=== PATIENT | female | born 1950 | race Caucasian/White ===

== ENCOUNTER 2017-05-17 06:51 | Inpatient (IN) | payer MEDICARE ==
[2017-05-17 08:24] LABS: Hematocrit 38 % (35-47); Hemoglobin 12.7 g/dl (12.0-16.0); Mean Corpuscular HGB Conc 33 g/dl (31-36); Mean Corpuscular Hemoglobin 30 pg (27-31); Mean Corpuscular Volume 90 fL (80-97); Mean Platelet Volume 10 um3 (7.4-10.4); Red Blood Count 4.22 10^6/ul (4.0-5.4); Red Cell Distribution Width 15 % (10.5-15); White Blood Count 14.3 10^3/ul (3.5-10.8)
[2017-05-17 08:31] LABS: Urine Bacteria Absent (Absent); Urine Bilirubin Negative (Negative); Urine Glucose Negative (Negative); Urine Nitrite Negative (Negative)
[2017-05-17 08:42] LABS: BUN/Creatinine Ratio 22.8 (8-20); C Reactive Protein 8.85 mg/L (< 5.00); Calcium 10.3 mg/dL (8.6-10.3); EGFR African American 78.5 (>60); EGFR Non-African American 61.1 (>60); Globulin 3.5 g/dL (2-4); Potassium 3.6 mmol/L (3.5-5.0); Total Bilirubin 1.6 mg/dL (0.2-1.0); Total Protein 7.5 g/dL (6.4-8.9)
--- NOTE | 2017-05-17 08:54 | RAD ---
HISTORY: Right upper quadrant pain COMPARISONS: None TECHNIQUE: Multiple transverse and longitudinal ultrasound images were obtained of the right upper quadrant of the abdomen using grayscale and color Doppler imaging. FINDINGS: LIVER: The liver is diffusely echogenic and coarse in echotexture, with decreased acoustic transmission. The liver is otherwise normal in shape, size, and contour. There is normal hepatopedal flow of the portal vein on Doppler imaging. BILIARY TREE: There is no intrahepatic or extrahepatic biliary dilatation. The common duct measures 0.7 cm. GALLBLADDER: The gallbladder is distended. Multiple shadowing echogenic foci consistent with gallstones are noted. There is no gallbladder wall thickening, pericholecystic fluid, or sonographic Ibrahim sign. PANCREAS: The head of the pancreas is unremarkable. The tail of the pancreas is not well visualized secondary to overlying bowel gas. RIGHT KIDNEY: The right kidney is normal in shape, size, contour, and echogenicity. There is no hydronephrosis or nephrolithiasis. The right kidney measures 10.9 x 4.9 x 4.1 cm. AORTA AND IVC: The aorta and IVC are unremarkable. FLUID: There are no pleural effusions. There is no free fluid within the hepatorenal recess. OTHER FINDINGS: None. IMPRESSION: 1. CHOLELITHIASIS WITHOUT SONOGRAPHIC FEATURES OF ACUTE CHOLECYSTITIS. 2. THE COMMON DUCT IS AT THE UPPER LIMITS OF NORMAL IN SIZE. THERE IS NO INTRAHEPATIC BILIARY DILATATION.
--- NOTE | 2017-05-17 10:09 | HP ---
H&P (Free Text) History and Physical: Surgery H & P Asked by Dr Gómez to evaluate a pt. with RUQ abdominal pain and a sono showing gallstones. Ms. Ibrahim is a 66 y.o. female who reports that a few hours after a dinner of pot rosie she woke up with RUQ abdominal pain. It radiated across the upper abdomen and she also felt back pain. She denies N/V/D, but may be a little constipated. She did not have a fever but noticed she was sweating. She recalls that she had a similar episode in the summer, but never before had an episode. She denies change in the color of her urine or stool. She came to the ER and after a time, the pain subsided. PMHx: CAD s/p stent in 2012, HTN, borderline DM Meds: protonix, asa, atorvastatin, lisinopril/HCTZ, plavix NKDA SH: neg. tob., occ EtOH, neg. IVDA FH: CAD paternal relatives, mother had a stroke at 66. PE: general: overweight female in NAD Vital Signs 05/17/17 05/17/17 05/17/17 06:52 07:34 08:00 Temperature 98.3 F Pulse Rate 105 94 86 Respiratory 14 11 13 Rate Blood Pressure 175/81 151/68 137/76 (mmHg) O2 Sat by Pulse 99 98 96 Oximetry 05/17/17 08:30 Temperature Pulse Rate Respiratory Rate Blood Pressure 139/77 (mmHg) O2 Sat by Pulse Oximetry HEENT: neg cervical or supraclavicular adenopathy, ?scleral icterus, moist oral mucosa lungs: clear to ausc. heart: regularly irregular abd: good BS, soft, mildly tender in the RUQ without guarding or rebound, neg. CVAT ext: neg. cyanosis, edema; easily palp DPs bilaterally. Laboratory Results - last 24 hr 05/17/17 05/17/17 05/17/17 08:11 08:11 08:11 WBC 14.3 H RBC 4.22 Hgb 12.7 Hct 38 MCV 90 MCH 30 MCHC 33 RDW 15 Plt Count 212 MPV 10 Neut % (Auto) 84.2 H Lymph % (Auto) 9.1 L Caroline % (Auto) 6.0 Eos % (Auto) 0.2 Baso % (Auto) 0.5 Absolute Neuts (auto) 12.0 H Absolute Lymphs (auto) 1.3 Absolute Monos (auto) 0.9 H Absolute Eos (auto) 0 Absolute Basos (auto) 0.1 Absolute Nucleated RBC 0 Nucleated RBC % 0 Sodium 127 L Potassium 3.6 Chloride 94 L Carbon Dioxide 26 Anion Gap 7 BUN 21 Creatinine 0.92 Est GFR ( Amer) 78.5 Est GFR (Non-Af Amer) 61.1 BUN/Creatinine Ratio 22.8 H Glucose 169 H Lactic Acid 0.8 Calcium 10.3 Magnesium 2.0 Total Bilirubin 1.60 H AST 389 H ALT 317 H Alkaline Phosphatase 164 H C-Reactive Protein 8.85 H Total Protein 7.5 Albumin 4.0 Globulin 3.5 Albumin/Globulin Ratio 1.1 Lipase 50 Urine Color Urine Appearance Urine pH Ur Specific [place] Urine Protein Urine Ketones Urine Blood Urine Nitrate Urine Bilirubin Urine Urobilinogen Ur Leukocyte Esterase Urine WBC (Auto) Urine RBC (Auto) Ur Squamous Epith Cells Urine Bacteria Urine Glucose 05/17/17 08:11 WBC RBC Hgb Hct MCV MCH MCHC RDW Plt Count MPV Neut % (Auto) Lymph % (Auto) Caroline % (Auto) Eos % (Auto) Baso % (Auto) Absolute Neuts (auto) Absolute Lymphs (auto) Absolute Monos (auto) Absolute Eos (auto) Absolute Basos (auto) Absolute Nucleated RBC Nucleated RBC % Sodium Potassium Chloride Carbon Dioxide Anion Gap BUN Creatinine Est GFR ( Amer) Est GFR (Non-Af Amer) BUN/Creatinine Ratio Glucose Lactic Acid Calcium Magnesium Total Bilirubin AST ALT Alkaline Phosphatase C-Reactive Protein Total Protein Albumin Globulin Albumin/Globulin Ratio Lipase Urine Color Yellow Urine Appearance Clear Urine pH 7.0 Ur Specific [place] 1.018 Urine Protein Negative Urine Ketones Negative Urine Blood Negative Urine Nitrate Negative Urine Bilirubin Negative Urine Urobilinogen Negative Ur Leukocyte Esterase Trace H Urine WBC (Auto) 2+(11-20/hpf) H Urine RBC (Auto) Absent Ur Squamous Epith Cells Present H Urine Bacteria Absent Urine Glucose Negative A/P: Symptomatic cholelithiasis with leukocytosis, in a pt. with cardiac hx. Will admit for management of pain, for antibiotics, and eventual cholecystectomy ; she will need cardiac clearance, I asked hospitalists to see. José
[2017-05-17] MEDS ORDERED: Morphine INJ* 2 MG/ML 1 ML SYRINGE (TWO MG - NEW SYRINGE VERSION) IV PRN (10:16)
[2017-05-17] MEDS: D5W 1/2 NS KCl 20 Meq 1000 ML* 1,000 ML IV SCH ×2 (12:21→23:59)
[2017-05-17] MEDS: Pantoprazole IV* 40 MG IV SCH (13:08)
[2017-05-17] MEDS: Metoprolol Succinate XL TAB* 50 MG PO SCH (13:58)
[2017-05-17] MEDS: amLODIPine TAB* 5 MG PO SCH (13:58)
[2017-05-17] MEDS: Lisinopril TAB* 10 MG PO SCH (13:58)
[2017-05-17] MEDS: Hydrochlorothiazide TAB* 25 MG PO SCH (13:58)
[2017-05-17] MEDS ORDERED: ZOSYN 3.375 GM x ONE DOSE over 30 miuntes IVPB ×2 (14:00)
[2017-05-17] MEDS: Atorvastatin* 80 MG TAB PO SCH (20:09)
[2017-05-17] MEDS: ZOSYN 3.375 GM Q6H - Intermittant 30 min Infusion IVPB SCH ×2 (20:10)
--- NOTE | 2017-05-17 22:18 | CONS ---
CC: Javier Corona MD; Constanec Schmidt MD * CONSULTATION REPORT: DATE OF CONSULT: 05/17/17 PRIMARY CARE PROVIDER: Javier Corona MD ATTENDING PHYSICIAN: Bety Sadler DO (dictated by Keena Snow NP). PHYSICIAN REQUESTING CONSULTATION: Constance Schmidt MD REASON FOR CONSULT: Medical evaluation of a patient with a history of coronary artery disease, hypertension, hyperlipidemia and borderline diabetes mellitus. HISTORY OF PRESENT ILLNESS: Ms. Ibrahim is a 66-year-old female with past medical history significant for coronary artery disease status post myocardial infarction in 2012, hypertension, hyperlipidemia, and borderline diabetes mellitus who presented to the emergency room with complaints of upper abdominal pain that started at approximately 1:30 this morning. The patient stated that nothing alleviated the pain. She had tried antacids. She reported feeling warm and denied any chills. She denies any cough, shortness of breath, nausea, or vomiting. The patient reported some diaphoresis when she was having the discomfort. She reports having a similar episode in the past that spontaneously resolved. She denies any urinary symptoms. She denies any lightheadedness, dizziness, or weakness. Due to the patient's continued pain, she decided to present to the emergency room for further evaluation of her symptoms. While in the emergency room, the patient had a gallbladder ultrasound showing cholelithiasis without acute cholecystitis. The patient's common duct was at the upper limits of normal in size. She had labs significant for sodium of 127 , white blood cell count of 14.3, alk phos 164, AST 389, ALT 137, and total bilirubin 1.60. She had an EKG showing a sinus tachycardia, rate of 92 with PVCs and an incomplete left bundle branch block. This EKG was similar to previous EKG in the system from 12/18/12. Dr. Schmidt saw the patient in the emergency room and the patient was admitted for symptomatic cholelithiasis with plans for surgery once medically cleared. The hospitalists were asked to consult on the patient to assist with preoperative risk stratification. PAST MEDICAL HISTORY: 1. Coronary artery disease, status post PR and stent placement. 2. Hyperlipidemia. 3. Hypertension. 4. Borderline diabetes mellitus. PAST SURGICAL HISTORY: Status post cardiac stenting with a bare-metal stent in the left circumflex in 2012. HOME MEDICATIONS: 1. Norvasc 5 mg oral daily. 2. Metoprolol succinate 50 mg oral daily. 3. Lisinopril/hydrochlorothiazide 20/25 mg one tablet oral daily. 4. Atorvastatin 80 mg daily at bedtime. 5. Aspirin 81 mg oral daily. 6. Multivitamin 1 tablet oral daily. 7. Vitamin C 500 mg oral daily. 8. Vitamin D 1000 mg oral daily. 9. Garlic 1 tablet oral daily. ALLERGIES: No known drug allergies. FAMILY HISTORY: The patient's father passed at age 71 from an PR and her brother passed in his late 50s from an PR. The patient denies any family history of diabetes mellitus. The patient had a paternal aunt with a history of leukemia. SOCIAL HISTORY: The patient denies tobacco or recreational drug use. She rarely drinks alcohol. Her daughter Kita Ibrahim will be her surrogate decision maker in the event she is unable to make decisions for herself. REVIEW OF SYSTEMS: I performed a 10-point review of systems. All the pertinent positives and negatives are mentioned in the history of present illness. The remaining review of systems are negative. PHYSICAL EXAM: Vital Signs: Temperature 97.9, heart rate 68, respiratory rate 16, O2 sat 100% on room air, blood pressure 152/61. General Appearance: The patient is alert, pleasant, appears to be in no acute distress. HEENT: Normocephalic, atraumatic. Pupils are equal, round, and reactive to light. Extraocular movements are intact. Cardiovascular: Irregular rate and rhythm. S1 and S2 present. There are no murmurs, rubs or gallops heard. Extremities: There is no lower extremity edema. DP and PT pulses are 2+ and symmetric. Respiratory: There is no accessory muscle use. Lungs are clear to auscultation bilaterally. Abdomen: Soft, nontender, and nondistended. There are bowel sounds present x4. Musculoskeletal: There is no clubbing or cyanosis noted. The patient exhibits good strength in all extremities. Skin: There is no rashes or abnormalities seen. Neurological: Cranial nerves II through XII are grossly intact. The patient moves all extremities. Psychological: The patient is calm and cooperative. DIAGNOSTIC STUDIES/LAB DATA: Sodium 127, potassium 3.6, chloride 94, CO2 26, BUN 21, creatinine 0.92, glucose 169. Alk phos 164, AST 389, ALT 317, and total bilirubin 1.60. White blood cell count 14.3, hemoglobin 12.7, hematocrit 38, and platelet count 212,000. EKG shows sinus tachycardia at a rate of 92 with PVCs and an incomplete left bundle branch block. This EKG is similar to previous EKG from 12/18/12. Gallbladder ultrasound from today. Radiologist Impression: Cholelithiasis without acute cholecystitis. Common duct at upper limits of normal in size. IMPRESSION: Ms. Ibrahim is a 66-year-old with the past medical history significant for coronary artery disease status post myocardial infarction and cardiac stenting, hypertension, hyperlipidemia, and borderline diabetes mellitus who presented to the emergency room with complaints of epigastric and upper abdominal pain and was found to have symptomatic cholelithiasis. The hospitalists were asked to assist with medical management of this patient and preoperative risk stratification on this patient during her hospitalization. ASSESSMENT/PLAN: 1. Symptomatic cholelithiasis. The patient will be started on Zosyn per Surgery. I will defer rest of the management per Surgery. We will recheck the patient's liver function tests in the morning. The patient will be n.p.o. after midnight for surgery hopefully tomorrow. We will hold her aspirin until after surgery. She will be on clear liquids until she is n.p.o. at midnight. According to RCRI the patient has 1 point placing her at a class II risk and a 0.9% risk of a major cardiac event. She has a METS score greater than 4. She had an EKG showing a sinus tachycardia at rate of 92, PVCs, and an incomplete left bundle branch block. It was an EKG similar to previous EKG from 12/18/12. The patient needs no further cardiac workup and may proceed to the OR when okay with Surgery. 2. History of coronary artery disease with myocardial infarction and bare mental stenting. The patient should be resumed on her aspirin when okay with Surgery postoperative. She will be continued on her metoprolol succinate in addition to her atorvastatin. 3. Hypertension. The patient will be continued on her home Norvasc, lisinopril , hydrochlorothiazide, and metoprolol succinate. 4. Hyperlipidemia. The patient will be continued on her home atorvastatin. 5. Hyperglycemia. The patient's glucose was 169 this morning, it does not appear that she has ever had a hemoglobin A1c. We will check a hemoglobin A1c on her. 6. Fluids, electrolytes, and nutrition. Clear liquid diet. N.p.o. after midnight for surgery. 7. Code status. Full code. 8. DVT prophylaxis. I will defer this to General Surgery. The patient should be encouraged to ambulate. 9. Disposition. Observation. TIME SPENT: Time for this consultation was approximately 45 minutes and greater than half of that was spent with the patient discussing the events leading to her arrival today, performing her physical examination, reviewing medications AND past medical history. The case has been reviewed with the attending, Dr. Sadler, who agrees with the plan of care. Reviewed by JANE RODRÍGUEZ 05/20/17 1423 [id number]/[facility] #: [id number] MTDUrbano
[2017-05-18] MEDS: ZOSYN 3.375 GM Q6H - Intermittant 30 min Infusion IVPB SCH ×8 (02:04→19:52)
[2017-05-18 05:53] LABS: Hematocrit 37 % (35-47); Hemoglobin 12.4 g/dl (12.0-16.0); Mean Corpuscular HGB Conc 34 g/dl (31-36); Mean Corpuscular Hemoglobin 31 pg (27-31); Mean Corpuscular Volume 91 fL (80-97); Mean Platelet Volume 10 um3 (7.4-10.4); Red Blood Count 4.05 10^6/ul (4.0-5.4); Red Cell Distribution Width 15 % (10.5-15); White Blood Count 8.3 10^3/ul (3.5-10.8)
[2017-05-18 06:07] LABS: Albumin 3.8 g/dL (3.2-5.2); BUN/Creatinine Ratio 11.7 (8-20); Calcium 9.5 mg/dL (8.6-10.3); EGFR African American 76.6 (>60); EGFR Non-African American 59.6 (>60); Globulin 3.3 g/dL (2-4); Potassium 3.8 mmol/L (3.5-5.0); Total Bilirubin 1.9 mg/dL (0.2-1.0); Total Protein 7.1 g/dL (6.4-8.9)
--- NOTE | 2017-05-18 07:57 | PN ---
Progress Note - Progress Note Date of Service: 05/18/17 Note: Surgery Ms. Ibrahim says she feels much better since getting protonix. She has been having diarrhea, though, and feels dehydrated. Vital Signs 05/17/17 05/17/17 05/17/17 08:00 08:30 09:38 Temperature Pulse Rate 86 Respiratory 13 Rate Blood Pressure 137/76 139/77 155/74 (mmHg) O2 Sat by Pulse 96 Oximetry 05/17/17 05/17/17 05/17/17 09:40 10:00 10:30 Temperature Pulse Rate 100 86 81 Respiratory 14 21 13 Rate Blood Pressure 140/98 137/73 (mmHg) O2 Sat by Pulse 97 96 96 Oximetry 05/17/17 05/17/17 05/17/17 11:00 11:16 11:30 Temperature Pulse Rate 75 90 Respiratory 12 18 14 Rate Blood Pressure 144/72 132/66 (mmHg) O2 Sat by Pulse 97 97 Oximetry 05/17/17 05/17/17 05/17/17 11:53 14:55 15:15 Temperature 97.9 F 98.0 F Pulse Rate 92 83 Respiratory 18 18 18 Rate Blood Pressure 152/61 134/72 (mmHg) O2 Sat by Pulse 100 96 Oximetry 05/17/17 05/17/17 05/17/17 19:09 19:42 23:32 Temperature 98.1 F 98.5 F Pulse Rate 85 81 Respiratory 17 17 14 Rate Blood Pressure 139/66 124/58 (mmHg) O2 Sat by Pulse 98 96 Oximetry 05/18/17 03:41 Temperature 98.3 F Pulse Rate 84 Respiratory 14 Rate Blood Pressure 123/59 (mmHg) O2 Sat by Pulse 97 Oximetry Abd: soft, non-tender Intake & Output 05/17/17 05/18/17 05/18/17 22:59 06:59 14:59 Intake Total 945 100 Output Total 1900 400 Balance -955 -300 Weight 211 lb Intake: IVPB 100 100 Oral 845 0 Output: Urine 1900 400 Other: # Bowel Movements 1 Estimated Stool Amount Small Laboratory Results - last 24 hr 05/17/17 05/17/17 05/17/17 08:11 08:11 08:11 WBC 14.3 H RBC 4.22 Hgb 12.7 Hct 38 MCV 90 MCH 30 MCHC 33 RDW 15 Plt Count 212 MPV 10 Neut % (Auto) 84.2 H Lymph % (Auto) 9.1 L [place] % (Auto) 6.0 Eos % (Auto) 0.2 Baso % (Auto) 0.5 Absolute Neuts (auto) 12.0 H Absolute Lymphs (auto) 1.3 Absolute Monos (auto) 0.9 H Absolute Eos (auto) 0 Absolute Basos (auto) 0.1 Absolute Nucleated RBC 0 Nucleated RBC % 0 Sodium 127 L Potassium 3.6 Chloride 94 L Carbon Dioxide 26 Anion Gap 7 BUN 21 Creatinine 0.92 Est GFR ( Amer) 78.5 Est GFR (Non-Af Amer) 61.1 BUN/Creatinine Ratio 22.8 H Glucose 169 H Lactic Acid 0.8 Calcium 10.3 Magnesium 2.0 Total Bilirubin 1.60 H AST 389 H ALT 317 H Alkaline Phosphatase 164 H Troponin I 0.00 C-Reactive Protein 8.85 H Total Protein 7.5 Albumin 4.0 Globulin 3.5 Albumin/Globulin Ratio 1.1 Lipase 50 Urine Color Urine Appearance Urine pH Ur Specific [place] Urine Protein Urine Ketones Urine Blood Urine Nitrate Urine Bilirubin Urine Urobilinogen Ur Leukocyte Esterase Urine WBC (Auto) Urine RBC (Auto) Ur Squamous Epith Cells Urine Bacteria Urine Glucose 05/17/17 05/17/17 05/17/17 08:11 13:38 15:08 WBC RBC Hgb Hct MCV MCH MCHC RDW Plt Count MPV Neut % (Auto) Lymph % (Auto) [place] % (Auto) Eos % (Auto) Baso % (Auto) Absolute Neuts (auto) Absolute Lymphs (auto) Absolute Monos (auto) Absolute Eos (auto) Absolute Basos (auto) Absolute Nucleated RBC Nucleated RBC % Sodium Potassium Chloride Carbon Dioxide Anion Gap BUN Creatinine Est GFR ( Amer) Est GFR (Non-Af Amer) BUN/Creatinine Ratio Glucose Lactic Acid 2.6 H* 1.6 Calcium Magnesium Total Bilirubin AST ALT Alkaline Phosphatase Troponin I C-Reactive Protein Total Protein Albumin Globulin Albumin/Globulin Ratio Lipase Urine Color Yellow Urine Appearance Clear Urine pH 7.0 Ur Specific [place] 1.018 Urine Protein Negative Urine Ketones Negative Urine Blood Negative Urine Nitrate Negative Urine Bilirubin Negative Urine Urobilinogen Negative Ur Leukocyte Esterase Trace H Urine WBC (Auto) 2+(11-20/hpf) H Urine RBC (Auto) Absent Ur Squamous Epith Cells Present H Urine Bacteria Absent Urine Glucose Negative 05/18/17 05/18/17 05:11 05:11 WBC 8.3 RBC 4.05 Hgb 12.4 Hct 37 MCV 91 MCH 31 MCHC 34 RDW 15 Plt Count 200 MPV 10 Neut % (Auto) 81.2 Lymph % (Auto) 13.6 L [place] % (Auto) 3.9 Eos % (Auto) 0.9 Baso % (Auto) 0.4 Absolute Neuts (auto) 6.7 Absolute Lymphs (auto) 1.1 Absolute Monos (auto) 0.3 Absolute Eos (auto) 0.1 Absolute Basos (auto) 0 Absolute Nucleated RBC 0 Nucleated RBC % 0 Sodium 134 Potassium 3.8 Chloride 102 Carbon Dioxide 24 Anion Gap 8 BUN 11 Creatinine 0.94 Est GFR ( Amer) 76.6 Est GFR (Non-Af Amer) 59.6 BUN/Creatinine Ratio 11.7 Glucose 168 H Lactic Acid Calcium 9.5 Magnesium Total Bilirubin 1.90 H AST 315 H ALT 519 H Alkaline Phosphatase 211 H Troponin I C-Reactive Protein Total Protein 7.1 Albumin 3.8 Globulin 3.3 Albumin/Globulin Ratio 1.2 Lipase Urine Color Urine Appearance Urine pH Ur Specific [place] Urine Protein Urine Ketones Urine Blood Urine Nitrate Urine Bilirubin Urine Urobilinogen Ur Leukocyte Esterase Urine WBC (Auto) Urine RBC (Auto) Ur Squamous Epith Cells Urine Bacteria Urine Glucose A/P: Symptomatic cholelithiasis now with less pain, but mildly elevated TB. Will ask GI to see and defer surgery till after their input. I have ordered MRCP. CLFoster
[2017-05-18] MEDS: amLODIPine TAB* 5 MG PO SCH (08:42)
[2017-05-18] MEDS: Metoprolol Succinate XL TAB* 50 MG PO SCH (08:42)
[2017-05-18] MEDS: Hydrochlorothiazide TAB* 25 MG PO SCH (08:42)
[2017-05-18] MEDS: Lisinopril TAB* 10 MG PO SCH (08:42)
[2017-05-18] MEDS ORDERED: Aspirin Low Dose CHEW TAB* 81 MG PO SCH (09:00)
[2017-05-18] MEDS ORDERED: Lisinopril/HCTZ 20/25(NF) TAB PO SCH (09:00)
[2017-05-18] MEDS: D5W 1/2 NS KCl 20 Meq 1000 ML* 1,000 ML IV SCH ×2 (10:29→19:54)
--- NOTE | 2017-05-18 11:02 | CONS ---
CC: Dr. Schmidt; Dr. Corona * CONSULTATION REPORT: DATE OF CONSULT: 05/18/17. REQUESTING PHYSICIAN: Dr. Schmidt. INDICATION: Cholelithiasis. NARRATIVE: Mr. Ibrahim is a very pleasant 66-year-old female with a history of coronary artery disease, diabetes, hyperlipidemia, hypertension, who is admitted over the weekend with right upper quadrant abdominal pain. She states that it began out of the blue. It was very colicky in nature. She came to the emergency room. She was found to have increased LFTs and a right upper quadrant ultrasound, which showed cholelithiasis, common bile duct 0.7 cm, no ductal dilatation. She was admitted to the hospital for possible surgery. Today, she is feeling much better; however, her LFTs have gone up a little bit more. There is now a question of whether or not she has choledochitises. Again , she is feeling much better at this point. PAST MEDICAL HISTORY: Please see the HPI. PAST SURGICAL HISTORY: Coronary artery stents. MEDICATIONS: Upon admission include: 1. Norvasc. 2. Metoprolol. 3. Garlic. 4. Vitamin D. 5. Vitamin C. 6. Multivitamin. 7. Aspirin. 8. Atorvastatin. 9. Lisinopril/hydrochlorothiazide. ALLERGIES: None. FAMILY HISTORY: Coronary artery disease, leukemia. SOCIAL HISTORY: No tobacco or alcohol use. No IV drug use. REVIEW OF SYSTEMS: Twelve systems were reviewed, other than that mentioned in the HPI were unremarkable. PHYSICAL EXAM: Vital Signs: T-max is 98.5, blood pressure is 128/55, pulse is 81. General: Well-appearing female, in no apparent distress, lying flat in bed. Alert, oriented, pleasant, fluent. HEENT: Mucous membranes are moist without lesions, ulcers, or exudate. Neck: Supple. Trachea is midline. Head is normocephalic and atraumatic. Heart: Regular rate and rhythm. No murmurs, rubs, or gallops. Lungs: Clear to auscultation bilaterally. No wheezes, rales , or rhonchi. Abdomen: Obese. Positive bowel sounds, soft. No epigastric tenderness. Very mild flank tenderness to very deep palpation. Skin: Warm and dry. No rashes or ulcers. No tattoos. Musculoskeletal: No CVA or spinal tenderness to palpation. DIAGNOSTIC STUDIES/LAB DATA: Of note, white count 8.3, hemoglobin 12.4, platelets of 200, bilirubin went from 1.6 to 1.9. AST went from 389 to 315. ALT went from 317 to 519, alk phos went from 164 to 211. CRP is 8.85. BUN 11, creatinine 0.94, glucose of 168. ASSESSMENT AND PLAN: This is a pleasant 66-year-old female with known cholelithiasis with possible choledocholithiasis. We will obtain an MRCP to evaluate her common bile duct. If she has a stone, she will need an ERCP. If no stone, then she can have surgery. We will continue to follow along. [id number]/[facility] #: [id number] MTDD
--- NOTE | 2017-05-18 11:37 | ED ---
Geraldine Hemphill Edward, scribed for Ariel Gómez MD on 05/17/17 at 0712 . Abdominal Pain/Female - HPI Summary HPI Summary: 66 y/o female presents to the ED c/o sudden onset ABD pain starting at 01:30 this morning. The pain was severe when it started, rated an 8/10. It is at a 2/ 10 now in the ED. The pain is located in the epigastric region under the ribcage ; when it was severe the pain radiated to her back. Pt felt like belching but couldn't. The pain was not alleviated with antacids. Associated sx: diaphoresis. Denies N/V/D. Last normal bowel movement yesterday. Pt had a similar episode of ABD pain a couple of months ago that resolved spontaneously. - History of Current Complaint Chief Complaint: EDAbdPain Stated Complaint: ABD PAIN Hx Obtained From: Patient Onset/Duration: Sudden Onset, Lasting Hours, Still Present Timing: Constant Severity Initially: Severe Severity Currently: Mild Pain Intensity: 8 Pain Scale Used: 0-10 Numeric Location: Epigastric Radiates: Yes Radiates to: Back Aggravating Factor(s): Nothing Alleviating Factor(s): Nothing Associated Signs and Symptoms: Positive: Diaphoresis. Negative: Nausea, Vomiting, Diarrhea Allergies/Adverse Reactions: Allergies Allergy/AdvReac Type Severity Reaction Status Date / Time No Known Allergies Allergy Verified 03/05/16 17:03 Home Medications: Home Medications amLODIPine TAB* [Norvasc 5 mg TAB*] 5 mg PO DAILY 05/17/17 [History Confirmed ] PMH/Surg Hx/FS Hx/Imm Hx Previously Healthy: No Endocrine/Hematology History: Reports: Hx Anticoagulant Therapy - plavix Denies: Hx Diabetes, Hx Thyroid Disease Cardiovascular History: Reports: Hx Hypertension - W/MEDS Denies: Hx Pacemaker/ICD Respiratory History: Denies: Hx Chronic Obstructive Pulmonary Disease (COPD) History: Denies: Hx Renal Disease Sensory History: Reports: Hx Contacts or Glasses Opthamlomology History: Reports: Hx Contacts or Glasses Neurological History: Denies: Hx Dementia, Hx Seizures Psychiatric History: Denies: Hx Substance Abuse - Cancer History Hx Chemotherapy: No Hx Radiation Therapy: No Infectious Disease History: No Infectious Disease History: Denies: Hx Hepatitis, Hx Human Immunodeficiency Virus (HIV), Traveled Outside the [place] in Last 30 Days - Family History Known Family History: Positive: Cardiac Disease - Social History Alcohol Use: Rare Hx Substance Use: No Substance Use Type: Reports: None Hx Tobacco Use: No Smoking Status (MU): Never Smoked Tobacco Review of Systems Positive: Skin Diaphoresis Eyes: Negative ENT: Negative Cardiovascular: Negative Respiratory: Negative Positive: Abdominal Pain. Negative: Vomiting, Diarrhea, Nausea Genitourinary: Negative Musculoskeletal: Negative Skin: Negative Neurological: Negative Psychological: Normal All Other Systems Reviewed And Are Negative: Yes Physical Exam - Summary Physical Exam Summary: VITAL SIGNS: Reviewed. GENERAL: Patient is a well-developed and nourished female who is lying comfortable in the stretcher. ~Patient is not in any acute respiratory distress. HEAD AND FACE: Normocephalic and atraumatic. EYES: PERRLA, EOMI x 2, No injected conjunctiva. EARS: Hearing grossly intact. Ear canals and tympanic membranes are WNL. MOUTH: Oropharynx within normal limits. NECK: Supple, trachea is midline, no adenopathy, no JVD. CHEST: Symmetric, no tenderness at palpation LUNGS: Clear to auscultation bilaterally. No wheezing or crackles. CVS: RRR, S1 and S2 present, no murmurs or gallops appreciated. ABDOMEN: Soft. Positive RUQ tenderness. No signs of distention. Positive bowel sounds. No rebound no guarding, and no masses palpated. No abdominal bruit or pulsations. EXTREMITIES: FROM in all major joints, no edema, no cyanosis or clubbing. NEURO: Alert and oriented x 3. No acute neurological deficits. Speech is normal. SKIN: Dry and warm Triage Information Reviewed: Yes Vital Signs On Initial Exam: Initial Vitals Temp Pulse Resp BP Pulse Ox 98.3 F 105 14 175/81 99 05/17/17 06:52 05/17/17 06:52 05/17/17 06:52 05/17/17 06:52 05/17/17 06:52 Vital Signs Reviewed: Yes Diagnostics - Vital Signs Vital Signs Temp Pulse Resp BP Pulse Ox 05/17/17 06:52 98.3 F 105 14 175/81 99 - Laboratory Lab Results: Lab Results 05/17/17 05/17/17 05/17/17 Range/Units 08:11 08:11 08:11 WBC 14.3 H (3.5-10.8) 10^3/ul RBC 4.22 (4.0-5.4) 10^6/ul Hgb 12.7 (12.0-16.0) g/dl Hct 38 (35-47) % MCV 90 (80-97) fL MCH 30 (27-31) pg MCHC 33 (31-36) g/dl RDW 15 (10.5-15) % Plt Count 212 (150-450) 10^3/ul MPV 10 (7.4-10.4) um3 Neut % (Auto) 84.2 H (38-83) % Lymph % (Auto) 9.1 L (25-47) % Jerome % (Auto) 6.0 (1-9) % Eos % (Auto) 0.2 (0-6) % Baso % (Auto) 0.5 (0-2) % Absolute Neuts (auto) 12.0 H (1.5-7.7) 10^3/ul Absolute Lymphs (auto) 1.3 (1.0-4.8) 10^3/ul Absolute Monos (auto) 0.9 H (0-0.8) 10^3/ul Absolute Eos (auto) 0 (0-0.6) 10^3/ul Absolute Basos (auto) 0.1 (0-0.2) 10^3/ul Absolute Nucleated RBC 0 10^3/ul Nucleated RBC % 0 Sodium 127 L (133-145) mmol/L Potassium 3.6 (3.5-5.0) mmol/L Chloride 94 L (101-111) mmol/L Carbon Dioxide 26 (22-32) mmol/L Anion Gap 7 (2-11) mmol/L BUN 21 (6-24) mg/dL Creatinine 0.92 (0.51-0.95) mg/dL Est GFR ( Amer) 78.5 (>60) Est GFR (Non-Af Amer) 61.1 (>60) BUN/Creatinine Ratio 22.8 H (8-20) Glucose 169 H (70-100) mg/dL Lactic Acid 0.8 (0.5-2.0) mmol/L Calcium 10.3 (8.6-10.3) mg/dL Magnesium 2.0 (1.9-2.7) mg/dL Total Bilirubin 1.60 H (0.2-1.0) mg/dL AST 389 H (13-39) U/L ALT 317 H (7-52) U/L Alkaline Phosphatase 164 H (34-104) U/L C-Reactive Protein 8.85 H (< 5.00) mg/L Total Protein 7.5 (6.4-8.9) g/dL Albumin 4.0 (3.2-5.2) g/dL Globulin 3.5 (2-4) g/dL Albumin/Globulin Ratio 1.1 (1-3) Lipase 50 (11.0-82.0) U/L Urine Color Urine Appearance Urine pH (5-9) Ur Specific [place] (1.010-1.030) Urine Protein (Negative) Urine Ketones (Negative) Urine Blood (Negative) Urine Nitrate (Negative) Urine Bilirubin (Negative) Urine Urobilinogen (Negative) Ur Leukocyte Esterase (Negative) Urine WBC (Auto) (Absent) Urine RBC (Auto) (Absent) Ur Squamous Epith Cells (Absent) Urine Bacteria (Absent) Urine Glucose (Negative) 05/17/17 Range/Units 08:11 WBC (3.5-10.8) 10^3/ul RBC (4.0-5.4) 10^6/ul Hgb (12.0-16.0) g/dl Hct (35-47) % MCV (80-97) fL MCH (27-31) pg MCHC (31-36) g/dl RDW (10.5-15) % Plt Count (150-450) 10^3/ul MPV (7.4-10.4) um3 Neut % (Auto) (38-83) % Lymph % (Auto) (25-47) % Jerome % (Auto) (1-9) % Eos % (Auto) (0-6) % Baso % (Auto) (0-2) % Absolute Neuts (auto) (1.5-7.7) 10^3/ul Absolute Lymphs (auto) (1.0-4.8) 10^3/ul Absolute Monos (auto) (0-0.8) 10^3/ul Absolute Eos (auto) (0-0.6) 10^3/ul Absolute Basos (auto) (0-0.2) 10^3/ul Absolute Nucleated RBC 10^3/ul Nucleated RBC % Sodium (133-145) mmol/L Potassium (3.5-5.0) mmol/L Chloride (101-111) mmol/L Carbon Dioxide (22-32) mmol/L Anion Gap (2-11) mmol/L BUN (6-24) mg/dL Creatinine (0.51-0.95) mg/dL Est GFR ( Amer) (>60) Est GFR (Non-Af Amer) (>60) BUN/Creatinine Ratio (8-20) Glucose (70-100) mg/dL Lactic Acid (0.5-2.0) mmol/L Calcium (8.6-10.3) mg/dL Magnesium (1.9-2.7) mg/dL Total Bilirubin (0.2-1.0) mg/dL AST (13-39) U/L ALT (7-52) U/L Alkaline Phosphatase (34-104) U/L C-Reactive Protein (< 5.00) mg/L Total Protein (6.4-8.9) g/dL Albumin (3.2-5.2) g/dL Globulin (2-4) g/dL Albumin/Globulin Ratio (1-3) Lipase (11.0-82.0) U/L Urine Color Yellow Urine Appearance Clear Urine pH 7.0 (5-9) Ur Specific [place] 1.018 (1.010-1.030) Urine Protein Negative (Negative) Urine Ketones Negative (Negative) Urine Blood Negative (Negative) Urine Nitrate Negative (Negative) Urine Bilirubin Negative (Negative) Urine Urobilinogen Negative (Negative) Ur Leukocyte Esterase Trace H (Negative) Urine WBC (Auto) 2+(11-20/hpf) H (Absent) Urine RBC (Auto) Absent (Absent) Ur Squamous Epith Cells Present H (Absent) Urine Bacteria Absent (Absent) Urine Glucose Negative (Negative) Result Diagrams: 05/17/17 08:11 05/17/17 08:11 Lab Statement: Any lab studies that have been ordered have been reviewed, and results considered in the medical decision making process. - Ultrasound No standard instances Ultrasound Interpretation: Positive (See Comments) - 1. CHOLELITHIASIS WITHOUT SONOGRAPHIC FEATURES OF ACUTE CHOLECYSTITIS. 2. THE COMMON DUCT IS AT THE UPPER LIMITS OF NORMAL IN SIZE. THERE IS NO INTRAHEPATIC BILIARY DILATATION. Ultrasound Interpretation Completed By: Radiologist - EKG 1 EKG Interpretation: 08:03 - SR @ 92 BPM. Multiple PVCs. Incomplete LBBB. Re-Evaluation - Re-Evaluation 1 Re-Evaluation Time: 09:27 Comment: discuss plan of care, test results and findings Abdominal Pain Fem Course/Dx - Course Course Of Treatment: 66 y/o female presents to the ED c/o sudden onset ABD pain starting at 01:30 this morning. The pain was severe when it started, rated an 8/ 10. It is at a 2/10 now in the ED. The pain is located in the epigastric region under the ribcage; when it was severe the pain radiated to her back. Pt felt like belching but couldn't. The pain was not alleviated with antacids. Associated sx: diaphoresis. Denies N/V/D. Last normal bowel movement yesterday. Pt had a similar episode of ABD pain a couple of months ago that resolved spontaneously. EKG @ 08:03 - SR @ 92 BPM. Multiple PVCs. Incomplete LBBB. GALLBLADDE US - 1. CHOLELITHIASIS WITHOUT SONOGRAPHIC FEATURES OF ACUTE CHOLECYSTITIS. 2. THE COMMON DUCT IS AT THE UPPER LIMITS OF NORMAL IN SIZE. THERE IS NO INTRAHEPATIC BILIARY DILATATION. Pt admitted to Dr. Schmidt at 10: 45. Test results w/o significant abnormalities except WBC 14.3, sodium 127, glucose 169, total bilirubin 1.6, AST 389, ALT 317, and CRP 8.85. UA (-) UTI. Lipase 50, therefore there are no signs of pancreatitis. It seems the pt has gallbaldder stones with possible acute cholecystitis since the LFTs are elevated. At this point I discussed the test results and findings with Dr. Schmidt who assessed the pt. After assessment Dr. Schmidt offered admission for possible cholecystectomy. The pt agrees and will be admitted to Dr. Shah services. The pt is hemodynamically stable, A&Ox3. - Diagnoses Differential Diagnosis: Positive: Constipation, Gall Bladder Disease, Hepatitis , Pancreatitis, Urinary Tract Infection Provider Diagnoses: RUQ pain with Cholelithisais , rule out cholecystitis - Provider Notifications Discussed Care Of Patient With: Constance Schmidt Time Discussed With Above Provider: 09:25 Instructed by Provider To: Will See In ED Discharge - Discharge Plan Condition: Good Disposition: ADMITTED TO [facility] documentation as recorded by the Geraldine garrison Edward accurately reflects the service I personally performed and the decisions made by , Ariel Gómez MD.
[2017-05-18] MEDS ORDERED: Famotidine IV* 10 MG/ML 2 ML (20 mg) ONE (13:07)
[2017-05-18] MEDS: Pantoprazole IV* 40 MG IV SCH (13:14)
--- NOTE | 2017-05-18 13:34 | RAD ---
Indication: Hyperbilirubinemia Axial fat sat T2, coronal T2, heavily weighted MRCP images were obtained. The common bile duct and common hepatic duct are unremarkable. The left and right hepatic ducts are not dilated. There are no filling defects in the common bile duct to suggest common duct calculi. Gallstones are noted. The pancreas demonstrates no mass or pancreatic duct dilatation. No obvious hepatic lesions are noted. IMPRESSION: No evidence of common duct calculi is noted. Gallstones are present.
[2017-05-18] MEDS ORDERED: Dextrose 50% Syringe 50 ML* 25 GM/50 ML SYRINGE IV PUSH PRN (17:44)
--- NOTE | 2017-05-18 17:47 | PN ---
Subjective Date of Service: 05/18/17 Interval History: Patient seen and examined at bedside. Patient reports that pain has completely resolved. She was pleased to find out that she does not have any stones on MRCP. She is hopeful that surgery will happen tomorrow. She denies fevers or chills, nausea or vomiting. Family History: Unchanged from Admission Social History: Unchanged from Admission Past Medical History: Unchanged from Admission Objective Active Medications: Amlodipine Besylate (Norvasc Tab*) 5 mg PO DAILY CLAIRE Atorvastatin Calcium (Lipitor*) 80 mg PO BEDTIME CLAIRE Hydrochlorothiazide (Hydrodiuril Tab*) 25 mg PO DAILY CLAIRE Piperacillin Sod/Tazobactam (Sod 3.375 gm/ Sodium Chloride) 100 mls @ 200 mls/ hr IVPB Q6H CLAIRE Potassium Chloride/Dextrose (D5w 1/2 Ns Kcl 20 Meq 1000 Ml*) 1,000 mls @ 125 mls/hr IV .PER RATE CLAIRE Lisinopril (Prinivil Tab*) 20 mg PO DAILY CLAIRE Metoprolol Succinate (Toprol Xl Tab*) 50 mg PO DAILY CLAIRE Morphine Sulfate (Morphine Inj (Syringe)*) 2 mg IV Q1H PRN Pantoprazole Sodium (Protonix Iv*) 40 mg IV Q24H CLAIRE Vital Signs Temp Pulse Resp BP Pulse Ox 98.5 F 84 16 106/53 99 05/18/17 15:47 05/18/17 15:47 05/18/17 15:47 05/18/17 15:47 05/18/17 15:47 Oxygen Devices in Use Now: None Appearance: sitting up in bed, NAD Eyes: No Scleral Icterus, PERRLA Ears/Nose/Mouth/Throat: NL Teeth, Lips, Gums Neck: NL Appearance and Movements; NL JVP Respiratory: Symmetrical Chest Expansion and Respiratory Effort, Clear to Auscultation Cardiovascular: NL Sounds; No Murmurs; No JVD, RRR Abdominal: NL Sounds; No Tenderness; No Distention Extremities: No Edema Skin: No Rash or Ulcers Neurological: Alert and Oriented x 3 Lines/Tubes/Other Access: Clean, Dry and Intact Peripheral IV Result Diagrams: 05/18/17 05:11 05/18/17 05:11 Additional Lab and Data: . Assess/Plan/Problems-Billing Patient is a 66 y/o F w/ PMH significant for CAD, HTN, HLD, borderline diabetes who presented to the ER on 05/17/2017 w/ the c/o of abdominal pain found to have cholelithiasis now with elevated bilirubin. - Patient Problems (1) Symptomatic cholelithiasis Comment: Management per surgery. MRCP negative for bile duct stone. Plan to recheck LFTs in the AM. If improved, likely she will have surgery tomorrow. Continue IV Zosyn per surgery. (2) HTN (hypertension) Comment: BP on the lower side. Will hold home antihypertensives for now given plan for OR. (3) CAD (coronary artery disease) Comment: ASA on hold for surgery. Restart when able. Continue metoprolol and statin. (4) HLD (hyperlipidemia) Comment: Continue statin. (5) Diabetes Comment: Hb A1C was 7.7. Will start fingersticks with lispro coverage. Plan to start metformin at discharge. (6) DVT prophylaxis Comment: per surgery; SCDs only as plan for OR (7) Full code status Status and Disposition: Inpatient for symptomatic cholelithiasis. Dispo per surgery.
[2017-05-18] MEDS: Insulin LISPRO* 1 UNITS UNIT SUBCUT SCH (21:26)
[2017-05-18] MEDS: Atorvastatin* 80 MG TAB PO SCH (21:39)
[2017-05-19] MEDS: ZOSYN 3.375 GM Q6H - Intermittant 30 min Infusion IVPB SCH ×4 (02:12→08:03)
[2017-05-19 05:06] LABS: Albumin 3.5 g/dL (3.2-5.2); Direct Bilirubin 0.3 mg/dL (0.03-0.18); Globulin 3.3 g/dL (2-4); Indirect Bilirubin 0.5 mg/dL (0.3-1.0); Total Bilirubin 0.8 mg/dL (0.2-1.0); Total Protein 6.8 g/dL (6.4-8.9)
[2017-05-19] MEDS: D5W 1/2 NS KCl 20 Meq 1000 ML* 1,000 ML IV SCH (05:13)
[2017-05-19] MEDS ORDERED: Buffered Lidocaine 0.9% SYRIN* 5 ML/SYR SYRINGE INTRADERM ONE (06:00)
[2017-05-19] MEDS: Insulin LISPRO* 1 UNITS UNIT SUBCUT SCH (07:44)
[2017-05-19] MEDS: Metoprolol Succinate XL TAB* 50 MG PO SCH (08:03)
[2017-05-19] MEDS ORDERED: Dexamethasone IV* 4 MG/ML 1 ML (4 MG) IV SLOW PU ONE (10:00)
[2017-05-19] MEDS ORDERED: Buffered Lidocaine 0.9% SYRIN* 5 ML/SYR SYRINGE ONE (11:24)
[2017-05-19] MEDS ORDERED: Dexamethasone IV* 4 MG/ML 1 ML (4 MG) ONE (11:24)
[2017-05-19] MEDS ORDERED: fentaNYL* 50 MCG/ML 2 ML VIAL (100 MCG VIAL) IV PRN (11:51)
[2017-05-19] MEDS ORDERED: oxyCODONE/Acetamin 5/325 MG* TAB PO PRN (11:51)
[2017-05-19] MEDS ORDERED: PROCHLORPERAZINE INJ 5 MG/ML 2 ML VIAL IV PRN (11:51)
[2017-05-19] MEDS ORDERED: HYDROcodone/ACETAMIN 5-325 MG* 1 TAB PO PRN (11:51)
[2017-05-19] MEDS ORDERED: Lidocaine 2% PF * 5 ML VIAL ONE (12:03)
[2017-05-19] MEDS ORDERED: Propofol* 10 MG/ML 20 ML BTL IV PUSH ONE (12:03)
[2017-05-19] MEDS ORDERED: Ketorolac INJ* 30 MG/ML 1 ML VIAL ONE (12:03)
[2017-05-19] MEDS ORDERED: Rocuronium* 10 MG/ML VIAL ONE (12:03)
[2017-05-19] MEDS ORDERED: fentaNYL* 50 MCG/ML 2 ML VIAL (100 MCG VIAL) ONE (12:03)
[2017-05-19] MEDS ORDERED: Bupivacaine 0.25% SDV* 30 ML ONE (12:24)
[2017-05-19] MEDS ORDERED: Ondansetron INJ* 2 MG/ML VIAL ONE (13:29)
[2017-05-19] MEDS ORDERED: Glycopyrrolate IV* 0.2 MG/ML 1 ML VIAL ONE (13:52)
[2017-05-19] MEDS ORDERED: Neostigmine Methylsulfate* 2 MG/2 ML SYRINGE ONE (13:52)
--- NOTE | 2017-05-19 14:04 | PN ---
Progress Note - Progress Note Date of Service: 05/19/17 Note: Brief Operative Note: Preop Dx: symptomatic cholelithiasis Postop Dx: same Procedure: Laparoscopic cholecystectomy Anesthesia: GET Surgeon: Elle Asst: OANH Walker Fluids: 1400 ml EBL: 30 ml Drains: none Specimen: GB Findings: dictated
[2017-05-19] MEDS ORDERED: HYDROcodone/ACETAMIN 5-325 MG* 1 TAB ONE (14:38)
--- NOTE | 2017-05-19 15:05 | PN ---
Subjective Date of Service: 05/19/17 Interval History: Patient seen and examined s/p denisha bloom. Patient denies SOB, pain. BP 120/ 60s. Sugars controlled overnight. Family History: Unchanged from Admission Social History: Unchanged from Admission Past Medical History: Unchanged from Admission Objective Active Medications: Hydrocodone Bitart/Acetaminophen ([place] 5-325 Tab*) 2 tab PO ONCE PRN Amlodipine Besylate (Norvasc Tab*) 5 mg PO DAILY CLAIRE Atorvastatin Calcium (Lipitor*) 80 mg PO BEDTIME CLAIRE Fentanyl Citrate (Fentanyl*) 50 mcg IV Q5M PRN Piperacillin Sod/Tazobactam (Sod 3.375 gm/ Sodium Chloride) 100 mls @ 200 mls/ hr IVPB Q6H CLAIRE Potassium Chloride/Dextrose (D5w 1/2 Ns Kcl 20 Meq 1000 Ml*) 1,000 mls @ 125 mls/hr IV .PER RATE CLAIRE Lactated Ringer's (Lactated Ringers 1000 Ml Bag*) 1,000 mls @ 125 mls/hr IV PER RATE CLAIRE Insulin Human Lispro (Humalog*) 0 - 15 units SUBCUT ACHS CLAIRE Metoprolol Succinate (Toprol Xl Tab*) 50 mg PO DAILY CLAIRE Morphine Sulfate (Morphine Inj (Syringe)*) 2 mg IV Q1H PRN Oxycodone/Acetaminophen (Percocet 5/325 Tab*) 1 tab PO ONCE PRN Pantoprazole Sodium (Protonix Iv*) 40 mg IV Q24H CLAIRE Prochlorperazine Edisylate (Compazine Inj*) 5 mg IV ONCE PRN Vital Signs Temp Pulse Resp BP Pulse Ox 96.8 F 70 16 142/76 95 05/19/17 14:18 05/19/17 15:00 05/19/17 15:00 05/19/17 15:00 05/19/17 15:00 Oxygen Devices in Use Now: Nasal Cannula Appearance: sitting up in bed, NAD Eyes: No Scleral Icterus, PERRLA Ears/Nose/Mouth/Throat: NL Teeth, Lips, Gums Neck: NL Appearance and Movements; NL JVP Respiratory: Symmetrical Chest Expansion and Respiratory Effort, Clear to Auscultation Cardiovascular: NL Sounds; No Murmurs; No JVD, RRR Abdominal: - - decreased BS; tender at incision sites. Extremities: No Edema Skin: No Rash or Ulcers Neurological: Alert and Oriented x 3, NL Muscle Strength and Tone Lines/Tubes/Other Access: Clean, Dry and Intact Peripheral IV Nutrition: Taking PO's Result Diagrams: 05/18/17 05:11 05/18/17 05:11 Additional Lab and Data: . Assess/Plan/Problems-Billing Patient is a 66 y/o F w/ PMH significant for CAD, HTN, HLD, borderline diabetes who presented to the ER on 05/17/2017 w/ the c/o of abdominal pain found to have cholelithiasis now with elevated bilirubin. - Patient Problems (1) Symptomatic cholelithiasis Comment: Management per surgery. LFTs down this AM and patient now s/p lap merle. Patient to be d/c from PACU. Independence for pain. (2) HTN (hypertension) Comment: BP on the lower side. Hold Norvasc and Lisinopril/HCTZ at discharge. (3) CAD (coronary artery disease) Comment: ASA on hold for surgery. Restart per surgery. Continue metoprolol and statin. (4) HLD (hyperlipidemia) Comment: Continue statin. (5) Diabetes Comment: Hb A1C was 7.7. Will start fingersticks with lispro coverage. Will have patient follow up with PCP regarding HbA1C and defer to them for initiation of DM medications. (6) DVT prophylaxis Comment: per surgery; SCDs only (7) Full code status Status and Disposition: Inpatient for symptomatic cholelithiasis. D/C home from PACU per surgery. Discussed with patient to monitor BP daily and hold BP meds except metoprolol until SBP greater than 140s.
[2017-05-19 15:53] VITALS: BP 142/75
--- NOTE | 2017-05-20 06:10 | OP ---
CC: Dr. Corona; Dr. Brewster * DATE OF OPERATION: 05/19/17 - ROOM #[id number] DATE OF : 50 SURGEON: Tong Almeida MD LAUNCH STEWARD: OANH Rusihng ANESTHESIOLOGIST: Dr. Tino Canseco. ANESTHESIA: General anesthetic, local infiltration. PRE-OP DIAGNOSIS: Symptomatic cholelithiasis. POST-OP DIAGNOSIS: Symptomatic cholelithiasis. OPERATIVE PROCEDURE: Laparoscopic cholecystectomy. DESCRIPTION OF PROCEDURE: The patient was supine on the operative table. After adequate general anesthetic, compression stockings, Lida Hugger warmer, and intravenous antibiotics, the abdomen was prepped with antiseptic, draped in a sterile fashion. Local infiltrative anesthesia was administered. Small umbilical incision was created, blunt port cannula was placed. Insufflation was carried out with carbon dioxide. Additional cannulae, 12-mm subxiphoid and 5-mm right upper quadrant and right anterior axillary line were placed through small stab wounds under direct vision. The gallbladder was tented upward. Areolar tissue was taken down off the region of the cystic duct and cystic artery, which were readily identified. A critical view of safety was obtained. The duct and artery were doubly clipped and divided and the gallbladder was taken off the liver bed using electrocautery. Hemostasis was good. The gallbladder was removed through the subxiphoid port without difficulty. There was no spillage. The pneumoperitoneum was allowed to escape as the cannulae were removed. Umbilical fascia was closed with 0 Polysorb and skin with 5-0 Vicryl followed by Steri-Strips. She tolerated the procedure well, was awakened and brought to Recovery in good condition. There were no complications. No drains. Pathologic specimen is gallbladder. Sponge and instrument counts are correct. Estimated blood loss less than 20 mL. [id number]/CPS #: [id number] [facility]
--- NOTE | 2017-05-20 06:44 | DS ---
CC: Dr. Javier Corona, [facility] * DISCHARGE SUMMARY: DATE OF ADMISSION: 05/17/17 DATE OF DISCHARGE: 05/19/17 ATTENDING SURGEON: Constance Schmidt MD * (DICTATED BY OANH YOST) HOSPITAL COURSE: Please refer to admission history and physical for admission details. The patient was admitted with symptomatic cholelithiasis. She did have elevation of her transaminases into the 300s upon admission and mildly elevated bilirubin. The bilirubin increased to 1.9 the following day and therefore MRCP was obtained. That was a normal study showing no evidence of choledocholithiasis. During pretty much all of her hospital stay, she remained afebrile and without abdominal pain or GI symptoms. She was maintained on IV Zosyn. She was taken to the operating room on 05/19/17 and underwent laparoscopic cholecystectomy with Dr. Almeida. Surgery was otherwise uneventful. She was doing well in recovery and plan was for discharge from recovery. Physical exam, temperature 96.8, blood pressure 142/75, pulse 75, respirations 16. She is now status post laparoscopic cholecystectomy and ready for discharge. Per the hospitalist, she had a mildly elevated A1c and will therefore follow up with Dr. Corona regarding that. She was also normotensive during the admission and therefore her lisinopril with hydrochlorothiazide and Norvasc will be held upon discharge to be resumed postoperatively as needed. She has a followup with our office on 05/26/17 and was scheduled for medical followup with Dr. Corona in 1 to 2 weeks. OANH YOST [id number]/[facility] #: [id number]
== END 2017-05-19 15:59 | disposition home or self-care (01) | DRG 419 ==
LOC: ED 06:51 → SSU 10:14 → OBSVTOIN 05-18 08:30
PROVIDERS: ADMIT Surgery; ATTEND Surgery
PROC: 0FT44ZZ Resection of Gallbladder, Percutaneous Endoscopic Approach (ICD-10-PCS; principal; 2017-05-19 12:00)
DX: K80.20 Calculus of gallbladder without cholecystitis without obstruction (principal); I11.9 Hypertensive heart disease without heart failure; E78.5 Hyperlipidemia, unspecified; I25.10 Atherosclerotic heart disease of native coronary artery without angina pectoris; Z95.5 Presence of coronary angioplasty implant and graft; Z82.49 Family history of ischemic heart disease and other diseases of the circulatory system; Z80.6 Family history of leukemia; I44.7 Left bundle-branch block, unspecified; R73.9 Hyperglycemia, unspecified
CPT/HCPCS: 36415; 74181; 76376; 76705; 80053; 80076; 81003; 81015; 83036; 83605; 83690; 83735; 84484; 85025; 86140; 87086; 93005; A9270-GY; G0378; J1100; J1885; J2405; J2543; J2704; J3010

== ENCOUNTER 2019-06-09 08:55 | Emergency (ER) | payer MEDICARE ==
[2019-06-09 09:07] VITALS: BP 167/64
--- NOTE | 2019-06-09 10:00 | UC ---
Upper Extremity HPI - HPI Summary HPI Summary: Patient is a 68yo female presenting with R elbow pain, redness, and warmth x2 days. Patient states she was lifting weights and exercising on Thursday when she "felt a twinge" but thought nothing of it. Patient notes pain with flexion of elbow. Denies bruising. Denies fever and chills. Denies n/v. Denies any known trauma or injury. - History of Current Complaint Chief Complaint: UCUpperExtremity Stated Complaint: ELBOW PAIN Hx Obtained From: Patient Onset/Duration: Gradual Onset, Lasting Days Severity Currently: Moderate Pain Intensity: 6 Pain Scale Used: 0-10 Numeric - Allergies/Home Medications Allergies/Adverse Reactions: Allergies Allergy/AdvReac Type Severity Reaction Status Date / Time No Known Allergies Allergy Verified 06/09/19 09:07 Home Medications: Home Medications Lisinopril TAB* [Prinivil TAB 5 MG*] 1 odt PO DAILY 06/09/19 [History Confirmed 06/09/19] PMH/Surg Hx/FS Hx/Imm Hx Cardiovascular History: Hypertension Other History Of: Anticoagulant Therapy - plavix - Surgical History Surgical History: Yes Surgery Procedure, Year, and Place: HEART STENTING - Family History Known Family History: Positive: Cardiac Disease - Social History Alcohol Use: Rare Substance Use Type: None Smoking Status (MU): Never Smoked Tobacco - Immunization History Most Recent Influenza Vaccination: 2017 Most Recent Pneumonia Vaccination: 2016 Review of Systems All Other Systems Reviewed And Are Negative: No Constitutional: Positive: Negative. Negative: Fever, Chills Skin: Positive: Other - redness and warmth of R elbow Respiratory: Positive: Negative Cardiovascular: Positive: Negative Gastrointestinal: Positive: Negative. Negative: Vomiting, Nausea Musculoskeletal: Positive: Decreased ROM - R elbow flexion. Negative: Edema Neurological: Negative: Paresthesia, Numbness Physical Exam Triage Information Reviewed: Yes Appearance: Well-Appearing, No Pain Distress, Well-Nourished Vital Signs: Initial Vital Signs Temp 98.4 F 06/09/19 09:03 Pulse 82 06/09/19 09:03 Resp 16 06/09/19 09:03 BP 167/64 06/09/19 09:03 Pulse Ox 100 06/09/19 09:03 Vital Signs Reviewed: Yes Eyes: Positive: Conjunctiva Clear ENT: Positive: Hearing grossly normal Neck: Positive: Supple Respiratory: Positive: No respiratory distress Cardiovascular: Positive: Pulses Normal, Brisk Capillary Refill Musculoskeletal: Positive: Strength Intact, ROM Intact, No Edema Neurological: Positive: Alert Psychological: Positive: Age Appropriate Behavior Skin: Positive: Other - 2.5cm circular area of erythema and warmth noted on R lateral elbow. no tenderness to touch Upper Extremity Course/Dx - Course Course Of Treatment: I treated patient with keflex for cellulitis and instructed to continue with symptomatic care. Patient received outline of erythema and education on s/s on worsening cellulitis. Instructed to go to ED with new or worsening symptoms. Patient voiced understanding and agreed with treatment plan. - Differential Dx/Diagnosis Provider Diagnosis: Cellulitis of right elbow Discharge ED - Sign-Out/Discharge Documenting (check all that apply): Patient Departure All imaging exams completed and their final reports reviewed: No Studies - Discharge Plan Condition: Stable Disposition: HOME Prescriptions: Cephalexin CAP* [Keflex CAP*] 500 mg PO TID #21 cap Patient Education Materials: Cellulitis (ED) Referrals: Javier Corona MD [Primary Care Provider] - If Needed Additional Instructions: As discussed, take Keflex as prescribed for the treatment of your skin infection. You can apply warm compresses and/or ice to help relieve pain. You may also continue to take acetaminophen as directed. Go to the emergency room if you experience fever, increasing redness and warmth to the area, drainage, or nausea and vomiting. - Billing Disposition and Condition Condition: STABLE Disposition: Home - Attestation Statements Provider Attestation: Per institutional requirements, I have reviewed the chart, however, I was not consulted specifically or made aware of this patient by the midlevel provider. I did not personally evaluate, interact with , or disposition this patient.
== END 2019-06-09 10:26 | disposition home or self-care (01) ==
LOC: UCEAST 08:55
DX: L03.113 Cellulitis of right upper limb (principal); I10 Essential (primary) hypertension; Z79.899 Other long term (current) drug therapy; Z79.01 Long term (current) use of anticoagulants; Z95.5 Presence of coronary angioplasty implant and graft
CPT/HCPCS: 99212; G0463

== ENCOUNTER 2022-10-13 01:20 | Observation (INO) ==
[2022-10-13 01:53] LABS: ABS Basophils 0.1 10^3/ul (0-0.2); ABS Eosinophils 0.1 10^3/ul (0-0.6); ABS Lymphocytes 2.6 10^3/ul (1.0-4.8); ABS Monocytes 0.7 10^3/ul (0-0.8); ABS Neutrophils 5.6 10^3/ul (1.5-7.7); Hematocrit 39 % (35-47); Hemoglobin 13.1 g/dL (12.0-16.0); Lymphocyte % 28.8 %; Mean Corpuscular HGB Conc 33 g/dL (31-36); Mean Corpuscular Hemoglobin 32 pg (27-31); Mean Corpuscular Volume 95 fL (80-97); Mean Platelet Volume 8.6 fL (7.4-10.4); Platelet Count 209 10^3/uL (150-450); Red Blood Count 4.14 10^6 /uL (3.70-4.87); Red Cell Distribution Width 14 % (10-15); White Blood Count 9.1 10^3/uL (3.5-10.8)
[2022-10-13 02:02] LABS: INR 0.9 (0.88-1.18)
[2022-10-13 02:30] LABS: Albumin 4.4 g/dL (3.2-5.2); Albumin/Globulin Ratio 1.6 (1-3); Calcium 9.4 mg/dL (8.6-10.3); Creatinine, Serum 1.15 mg/dL (0.51-0.95); Globulin 2.7 g/dL (2-4); Potassium 4.2 mmol/L (3.5-5.0); Total Bilirubin 0.4 mg/dL (0.2-1.0); Total Protein 7.1 g/dL (6.4-8.9); eGFR CKD-EPI 50.6 (>60)
[2022-10-13 03:15] LABS: High Sensitivity Troponin 1 Hr 6 pg/mL (<15)
[2022-10-13] MEDS ORDERED: Senna TAB 8.6 mg TAB PO PRN (04:54)
[2022-10-13] MEDS ORDERED: Ondansetron 4 mg VIAL 2 MG/ML 2 ml VIAL IV PRN (04:54)
[2022-10-13] MEDS ORDERED: NS 0.9% 1000 ml BAG 1,000 ML IV SCH (06:00)
[2022-10-13 06:05] LABS: HDL Cholesterol 59.5 mg/dL
[2022-10-13] MEDS ORDERED: Sulfur Hexaflouride MICROSPHR 25 MG VIAL ONE (08:14)
[2022-10-13] MEDS ORDERED: CMCS: Ketorolac 0.5% OPHTH (NF) 0.5 % 5 ML BTL LEFT EYE SCH (09:00)
[2022-10-13] MEDS ORDERED: prednisoLONE 1% OPHTH.SUSP 5 ML OPHTH.SUSP LEFT EYE SCH (09:00)
[2022-10-13 09:16] LABS: ABS Basophils 0.1 10^3/ul (0-0.2); ABS Lymphocytes 1.8 10^3/ul (1.0-4.8); ABS Monocytes 0.5 10^3/ul (0-0.8); ABS Neutrophils 5.4 10^3/ul (1.5-7.7); Eosinophil % 0.3 %; Hematocrit 40 % (35-47); Hemoglobin 13.2 g/dL (12.0-16.0); Lymphocyte % 23.2 %; Mean Corpuscular HGB Conc 33 g/dL (31-36); Mean Corpuscular Hemoglobin 31 pg (27-31); Mean Corpuscular Volume 95 fL (80-97); Mean Platelet Volume 9.2 fL (7.4-10.4); Platelet Count 213 10^3/uL (150-450); Red Blood Count 4.22 10^6 /uL (3.70-4.87); Red Cell Distribution Width 14 % (10-15); White Blood Count 7.8 10^3/uL (3.5-10.8)
[2022-10-13 10:23] LABS: Blood Urea Nitrogen 21 mg/dL (6-24); CO2 Carbon Dioxide 28 mmol/L (22-32); Calcium 9.4 mg/dL (8.6-10.3); Chloride 103 mmol/L (101-111); Creatinine, Serum 0.92 mg/dL (0.51-0.95); Glucose 119 mg/dL (70-100); Sodium 137 mmol/L (135-145); eGFR CKD-EPI 66.2 (>60)
[2022-10-13 10:52] LABS: Anion Gap 6 mmol/L (2-11)
[2022-10-13] MEDS ORDERED: Enoxaparin 40 MG/0.4 ML SYR SUBCUT SCH (15:00)
[2022-10-13 15:06] VITALS: BP 160/78
== END 2022-10-13 15:04 | disposition home or self-care (01) ==
LOC: ED 01:20 → EDHOLD 01:20 → SUATTDRO 04:12 → EDHOLD 15:03
PROVIDERS: ADMIT Internal Medicine; ATTEND Hospitalist